=== PATIENT | female | born 1995 | race Caucasian/White ===

== ENCOUNTER → 2018-02-08 | Outpatient (CLI) | payer OTHER ==
--- NOTE | 2018-02-08 11:46 | RADIOLOGY REPORT (SQ) ---
EXAM DESCRIPTION: HYSTEROSALPINGOGRAM; HYSTERO CATH/INJECTION COMPLETED DATE/TIME: 02/08/2018 11:35 am REASON FOR STUDY: INFERTILITY COMPARISON: None. PROCEDURE: PRE-PROCEDURE: Procedure was explained to the patient. She was told to expect cramping du ring the procedure, and possible spotting post procedure. PROCEDURE: Under direct visual inspection, the cervix was cannulated with the hysterosalpingogram ca theter and contrast injected. TECHNIQUE: Temporal fluoroscopic images acquired during the procedure stored to PACS. FLUOROSCOPY TIME: Less than 5 seconds 8 digital radiographic images saved to PACS. LIMITATIONS: None. FINDINGS: UTERUS: No identified anomalies. No synechia. RIGHT ADNEXA: Normal size fallopian tube. Free spill of contrast into the peritoneal cavity. LEFT ADNEXA: Normal size fallopian tube. Free spill of contrast into the peritoneal cavity. POST PROCEDURE: The patient tolerated the procedure with no adverse effects. IMPRESSION: NORMAL HYSTEROSALPINGOGRAM. COMMENT: Quality ID 145: Final reports for procedures using fluoroscopy that document radiation exp osure indices, or exposure time and number of fluorographic images (if radiation exposure indices are not available) TECHNICAL DOCUMENTATION: JOB ID: [id number] [employer]- All Rights Reserved Reading location - IP/workstation name: [email or web address]
--- NOTE | 2018-02-08 11:47 | RADIOLOGY REPORT (SQ) ---
EXAM DESCRIPTION: HYSTEROSALPINGOGRAM; HYSTERO CATH/INJECTION COMPLETED DATE/TIME: 02/08/2018 11:35 am REASON FOR STUDY: INFERTILITY COMPARISON: None. PROCEDURE: PRE-PROCEDURE: Procedure was explained to the patient. She was told to expect cramping du ring the procedure, and possible spotting post procedure. PROCEDURE: Under direct visual inspection, the cervix was cannulated with the hysterosalpingogram ca theter and contrast injected. TECHNIQUE: Temporal fluoroscopic images acquired during the procedure stored to PACS. FLUOROSCOPY TIME: Less than 5 seconds 8 digital radiographic images saved to PACS. LIMITATIONS: None. FINDINGS: UTERUS: No identified anomalies. No synechia. RIGHT ADNEXA: Normal size fallopian tube. Free spill of contrast into the peritoneal cavity. LEFT ADNEXA: Normal size fallopian tube. Free spill of contrast into the peritoneal cavity. POST PROCEDURE: The patient tolerated the procedure with no adverse effects. IMPRESSION: NORMAL HYSTEROSALPINGOGRAM. COMMENT: Quality ID 145: Final reports for procedures using fluoroscopy that document radiation exp osure indices, or exposure time and number of fluorographic images (if radiation exposure indices are not available) TECHNICAL DOCUMENTATION: JOB ID: [id number] [email or web address]- All Rights Reserved Reading location - IP/workstation name: [email or web address]
== END ==
LOC: RAD 10:43
PROVIDERS: ATTEND Obstetrics & Gynecology
DX: E28.2 Polycystic ovarian syndrome (principal); N97.9 Female infertility, unspecified
CPT/HCPCS: 58340; 74740

== ENCOUNTER 2018-09-23 22:33 | Outpatient (CLI) | payer OTHER ==
[2018-09-23 23:07] LABS: APPEARANCE,URINE CLEAR; BILIRUBIN,URINE NEGATIVE (NEGATIVE); COLOR,URINE YELLOW; GLUCOSE, URINE NEGATIVE (NEGATIVE); KETONES,URINE TRACE mg/dL (NEGATIVE); LEUKOCYTE ESTERASE,URINE NEGATIVE (NEGATIVE); NITRITE,URINE NEGATIVE (NEGATIVE); PROTEIN,URINE NEGATIVE (NEGATIVE); URINE SPECIFIC GRAVITY 1.005; UROBILINOGEN,URINE NEGATIVE mg/dL (<2.0)
[2018-09-23 23:22] LABS: URINE AMPHETAMINES SCREEN NEGATIVE; URINE BARBITURATES SCREEN NEGATIVE; URINE BENZODIAZEPINES SCREEN NEGATIVE; URINE COCAINE SCREEN NEGATIVE; URINE MARIJUANA (THC) SCREEN NEGATIVE; URINE METHADONE SCREEN NEGATIVE; URINE PHENCYCLIDINE SCREEN NEGATIVE
--- NOTE | 2018-09-24 00:34 | Non Stress Test Report ---
Non Stress Test Datetime Report Generated by CPN: 09/24/2018 00:34 DEMOGRAPHIC EGA NST: 33.5 INDICATION Indication for Study: Ordered by Provider Indication for Study (NST) Other: LC MONITORING Monitor Explained: Monitor Explained; Test Explained; Patient Verbalized Understanding Time on Monitor: 09/23/2018 22:49 Time off Monitor: 09/24/2018 00:23 NST Duration: 94 NST INTERVENTIONS NST Interventions: PO Hydration; Reposition Patient Physician Notified NST: Dr. Jackson BABY A: [id number] BABY A Movement : Present Contraction Frequency : irregular FHR Baseline : 140 Accelerations : 15X15 Decelerations : None Variability : Moderate 6-25bpm NST Review: Meets Criteria for Reactive NST NST Review and Verified By : teri tamez RN NST Results: Reactive NST REPORT Report Trigger: Send Report
== END 2018-09-24 00:27 | disposition home or self-care (01) ==
LOC: LC 22:33
PROVIDERS: ATTEND Obstetrics & Gynecology
PROC: 4A1HXCZ Monitoring of Products of Conception, Cardiac Rate, External Approach (ICD-10-PCS; principal; 2018-09-23)
DX: O47.03 False labor before 37 completed weeks of gestation, third trimester (principal); Z3A.33 33 weeks gestation of pregnancy
CPT/HCPCS: 59025; 80307; 81001; 84112

== ENCOUNTER 2018-10-09 10:50 | Outpatient (CLI) | payer OTHER ==
--- NOTE | 2018-10-09 11:40 | Non Stress Test Report ---
Non Stress Test Datetime Report Generated by CPN: 10/09/2018 11:39 DEMOGRAPHIC EGA NST: 36.0 INDICATION Indication for Study: Ordered by Provider Indication for Study (NST) Other: sent from the offfice MONITORING Monitor Explained: Monitor Explained; Test Explained; Patient Verbalized Understanding Time on Monitor: 10/09/2018 11:07 Time off Monitor: 10/09/2018 11:33 NST Duration: 26 NST INTERVENTIONS NST Interventions: PO Hydration; Reposition Patient Physician Notified NST: N Godinez CNM BABY A: [id number] BABY A Movement : Present Contraction Frequency : OCC FHR Baseline : 140 Accelerations : 15X15 Decelerations : None Variability : Moderate 6-25bpm NST Review: Meets Criteria for Reactive NST NST Review and Verified By : JUANCHO OSBORNE RN NST Results: Reactive NST REPORT Report Trigger: Send Report
== END 2018-10-09 11:47 | disposition home or self-care (01) ==
LOC: LC 10:50
PROVIDERS: ATTEND Obstetrics & Gynecology
PROC: 4A1HXCZ Monitoring of Products of Conception, Cardiac Rate, External Approach (ICD-10-PCS; principal; 2018-10-09)
DX: Z34.93 Encounter for supervision of normal pregnancy, unspecified, third trimester (principal)
CPT/HCPCS: 59025

== ENCOUNTER 2018-10-09 11:44 | Emergency (ER) | payer OTHER ==
--- NOTE | 2018-10-09 11:52 | ER Document Report ---
ED Medical Screen (RME) - General Chief Complaint: Leg Pain Stated Complaint: RIGHT LEG PAIN Time Seen by Provider: 10/09/18 11:47 Primary Care Provider: HAWA BRYANT MD [Primary Care Provider] - Follow up as needed Mode of Arrival: Ambulatory Information source: Patient Notes: 23-year-old female presented to ED for complaint of pain to the posterior right thigh off and on for the last week she states she has it in both legs but it is worse than the right. 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 Patient is alert oriented respirations regular nonlabored speaking in full sentences walks with a even steady gait. I have greeted and performed a rapid initial assessment of this patient. A comprehensive ED assessment and evaluation of the patient, analysis of test results and completion of medical decision making process will be conducted by an additional ED providers. TRAVEL OUTSIDE OF THE [place] IN LAST 30 DAYS: No - Related Data Allergies/Adverse Reactions: Penicillins Allergy (Intermediate, Verified 10/09/18 11:45) Hives Physical Exam - Vital signs Vitals: Temp Pulse Resp BP Pulse Ox 98.0 F 76 18 125/81 99 10/09/18 11:48 10/09/18 11:48 10/09/18 11:48 10/09/18 11:48 10/09/18 11:48 Course - Vital Signs Vital signs: Temp Pulse Resp BP Pulse Ox 98.0 F 76 18 125/81 99 10/09/18 11:48 10/09/18 11:48 10/09/18 11:48 10/09/18 11:48 10/09/18 11:48 Doctor's Discharge - Discharge Referrals: HAWA BRYANT MD [Primary Care Provider] - Follow up as needed
--- NOTE | 2018-10-09 13:08 | ER Document Report ---
ED General - General Chief Complaint: Leg Pain Stated Complaint: RIGHT LEG PAIN Time Seen by Provider: 10/09/18 11:47 Primary Care Provider: HAWA BRYANT MD [ACTIVE STAFF] - Follow up in 1 week Mode of Arrival: Ambulatory Information source: Patient Notes: This 23-year-old female G1, P0 approximately 36 weeks presents today with complaints of right leg pain. Reports she has had the pain for approximately 1 week feels crampy radiates down her leg. She reports the back of her right thigh is tender to touch achy as well as her right lower leg. Denies history of DVT/PE. Family history of DVT PE. Denies recent trip denies trauma. Denies fever vomiting diarrhea. She called her stock clerk and her stock clerk told her to come here for evaluation. Patient denies abdominal pain denies pain with void denies vaginal discharge vaginal bleeding. TRAVEL OUTSIDE OF THE [place] IN LAST 30 DAYS: No - HPI Onset: Last week Onset/Duration: Sudden, Persistent Quality of pain: Achy Severity: Mild Pain Level: 1 Associated symptoms: None Exacerbated by: Denies Relieved by: Denies Similar symptoms previously: No Recently seen / treated by doctor: No - Related Data Allergies/Adverse Reactions: Penicillins Allergy (Intermediate, Verified 10/09/18 11:45) Hives Past Medical History - General Information source: Patient Last Menstrual Period: Due P0 - Social History Smoking Status: Unknown if Ever Smoked Cigarette use (# per day): No Frequency of alcohol use: None Drug Abuse: None Lives with: Family Family History: None, Reviewed & Not Pertinent Patient has suicidal ideation: No Patient has homicidal ideation: No - Medical History Medical History: Negative Renal/ Medical History: Denies: Hx Peritoneal Dialysis Surgical Hx: Negative Review of Systems - Review of Systems Notes: Review HPI for review of systems., All other systems negative Physical Exam - Vital signs Vitals: Temp Pulse Resp BP Pulse Ox 98.0 F 76 18 125/81 99 10/09/18 11:48 10/09/18 11:48 10/09/18 11:48 10/09/18 11:48 10/09/18 11:48 - General General appearance: Appears well, Alert In distress: None - HEENT Head: Normocephalic Eyes: Normal Conjunctiva: Normal Extraocular movements intact: Yes Neck: Supple - Respiratory Respiratory status: No respiratory distress Breath sounds: Normal - Cardiovascular Rhythm: Regular Heart sounds: Normal auscultation Murmur: No - Abdominal Inspection: Gravid female Tenderness: Nontender - Extremities General upper extremity: Normal color, Normal ROM General lower extremity: Normal color, Normal ROM, Normal weight bearing. No: Paty's sign Thigh: Tender - Reports right lateral posterior upper thigh tender to palpate no erythema no warmth no swelling no signs of infection Calf: Nontender - Neurological Neuro grossly intact: Yes Cognition: Normal Orientation: AAOx4 Crum Coma Scale Eye Opening: Spontaneous Crum Coma Scale Verbal: Oriented Crum Coma Scale Motor: Obeys Commands Derek Coma Scale Total: 15 Speech: Normal - Psychological Associated symptoms: Normal affect, Normal mood - Skin Skin Temperature: Warm Skin Moisture: Dry Skin Color: Normal Course - Re-evaluation Re-evalutation: 10/09/18 13:07 Patient resting quietly. She was instructed on pending Doppler. No signs of obvious thrombosis. Denies abdominal pain. 10/09/18 14:23 Venous Doppler Study 10/09/18 11:47 IMPRESSION: NO EVIDENCE DVT OR SVT IN THE RIGHT LEG. 10/09/18 15:23 Doppler negative for DVT. Patient instructed on results. Patient instructed follow-up with her primary care provider, MAINTENANCE TECHNICIAN 3RD SHIFT. She verbalized understanding to all instructions. - Vital Signs Vital signs: Temp Pulse Resp BP Pulse Ox 98.1 F 64 16 118/68 100 10/09/18 14:33 10/09/18 14:33 10/09/18 14:33 10/09/18 14:33 10/09/18 14:33 - Diagnostic Test Radiology reviewed: Image reviewed, Reports reviewed Discharge - Discharge Clinical Impression: Leg pain, right Condition: Stable Disposition: HOME, SELF-CARE Additional Instructions: *You have been evaluated for right leg pain *Your ultrasound was negative for a DVT *Follow up with your MAINTENANCE TECHNICIAN 3RD SHIFT as scheduled *Monitor your leg pain *Return to ED for worsening condition, changes, needs, increased pain, concerns Referrals: HAWA BRYANT MD [ACTIVE STAFF] - Follow up in 1 week
--- NOTE | 2018-10-09 14:14 | RADIOLOGY REPORT (SQ) ---
EXAM DESCRIPTION: VENOUS UNILATERAL LOWER COMPLETED DATE/TIME: 10/09/2018 2:05 pm REASON FOR STUDY: pain back right thigh prgnant sent by business risk analyst COMPARISON: None. TECHNIQUE: Dynamic and static bates scale and color images acquired of the right leg venous system. S elected spectral images acquired with additional compression and augmentation maneuvers. The contrala teral common femoral vein and saphenofemoral junction were also imaged. Images stored on PACS. LIMITATIONS: None. FINDINGS: COMMON FEMORAL: Normal phasicity, compression and augmentation. No visualized echogenic ma terial on bates scale. No defects on color images. FEMORAL: Normal compression and augmentation. No visualized echogenic material on bates scale. No defe cts on color images. POPLITEAL: Normal compression, augmentation. No visualized echogenic material on bates scale. No defec ts on color images. CALF VESSELS: Normal compression, augmentation. No visualized echogenic material on bates scale. No de fects on color images. GSV and SSV: Normal compression, augmentation. No visualized echogenic material on bates scale. No def ects on color images. Reflux is noted in the right greater saphenous vein. ANY DEEP VENOUS INSUFFICIENCY: Not evaluated. ANY EVIDENCE OF POPLITEAL CYST: No. OTHER: No other significant finding. CONTRALATERAL COMMON FEMORAL VEIN AND SAPHENOFEMORAL JUNCTION: Normal phasicity, compression and augmentation. No visualized echogenic material on bates scale. No de fects on color images. IMPRESSION: NO EVIDENCE DVT OR SVT IN THE RIGHT LEG. TECHNICAL DOCUMENTATION: JOB ID: [id number] [employer]- All Rights Reserved Reading location - IP/workstation name: [email or web address]
[2018-10-09 14:34] VITALS: BP 118/68
== END 2018-10-09 14:33 | disposition home or self-care (01) ==
LOC: ER 11:44
DX: O26.93 Pregnancy related conditions, unspecified, third trimester (principal); M79.604 Pain in right leg; Z3A.36 36 weeks gestation of pregnancy; Z88.0 Allergy status to penicillin
CPT/HCPCS: 93971; 99283

== ENCOUNTER 2018-10-31 00:38 | Inpatient (IN) | payer OTHER ==
[2018-10-31 00:54] LABS: APPEARANCE,URINE CLEAR; BILIRUBIN,URINE NEGATIVE (NEGATIVE); COLOR,URINE STRAW; GLUCOSE, URINE NEGATIVE (NEGATIVE); KETONES,URINE NEGATIVE (NEGATIVE); LEUKOCYTE ESTERASE,URINE NEGATIVE (NEGATIVE); NITRITE,URINE NEGATIVE (NEGATIVE); PROTEIN,URINE NEGATIVE (NEGATIVE); URINE SPECIFIC GRAVITY 1.008; UROBILINOGEN,URINE NEGATIVE mg/dL (<2.0)
[2018-10-31 01:09] LABS: URINE AMPHETAMINES SCREEN NEGATIVE; URINE BARBITURATES SCREEN NEGATIVE; URINE BENZODIAZEPINES SCREEN NEGATIVE; URINE COCAINE SCREEN NEGATIVE; URINE MARIJUANA (THC) SCREEN NEGATIVE; URINE METHADONE SCREEN NEGATIVE; URINE PHENCYCLIDINE SCREEN NEGATIVE
[2018-10-31] MEDS ORDERED: RINGERS SOLUTION,LACTATED 1,000 ML IV PRN (01:16)
[2018-10-31] MEDS ORDERED: VANCOMYCIN HCL INJ 1000 MG VIAL IV PRN (01:24)
[2018-10-31] MEDS ORDERED: VANCOMYCIN HCL 1,000 MG in DEXTROSE 5%-WATER 250 ML IV ONE (01:30)
[2018-10-31 01:51] LABS: ABSOLUTE LYMPHOCYTES (AUTO) 1.9 10^3/uL (0.5-4.7); ABSOLUTE MONOCYTES (AUTO) 0.9 10^3/uL (0.1-1.4); ABSOLUTE NEUT (AUTO) 8.1 10^3/uL (1.7-8.2); BASOPHILS % (AUTO) 0.2 % (0-2); EOSINOPHILS % (AUTO) 0.4 % (0-6); HEMATOCRIT 38.7 % (36.0-47.0); HEMOGLOBIN 13.5 g/dL (12.0-15.5); LYMPHOCYTES % (AUTO) 17.7 % (13-45); MEAN CORPUSCULAR HEMOGLOBIN 32.1 pg (27.0-33.4); MEAN CORPUSCULAR VOLUME 92 fl (80-97); PLATELET COUNT 155 10^3/uL (150-450); RED BLOOD COUNT 4.22 10^6/uL (3.72-5.28); RED CELL DISTRIBUTION WIDTH 12.5 % (11.5-14.0); SEGMENTED NEUTROPHILS % (AUTO) 73.7 % (42-78); TOTAL CELLS COUNTED % (AUTO) 100 %; WHITE BLOOD COUNT 10.9 10^3/uL (4.0-10.5)
[2018-10-31] MEDS ORDERED: VANCOMYCIN HCL INJ 1000 MG VIAL ONE (02:17)
[2018-10-31] MEDS ORDERED: FENTANYL CITRATE INJ/PF 100 MCG/2 ML AMPUL ONE (03:01)
[2018-10-31] MEDS ORDERED: OXYTOCIN/NORMAL SALINE 20 UNIT/1,000 ML RTUINJ ONE (03:11)
[2018-10-31] MEDS ORDERED: MISOPROSTOL 0.2 MG TABLET ONE (03:11)
[2018-10-31] MEDS ORDERED: OXYTOCIN 10 UNIT/ML VIAL ONE (03:11)
[2018-10-31] MEDS ORDERED: LIDOCAINE 1% INJ-PF (10 MG/ML) 30 ML SDV ONE (03:11)
--- NOTE | 2018-10-31 04:48 | Admission Physical ---
Datetime Report Generated by CPN: 10/31/2018 04:48 CURRENT ADMISSION Chief Complaint: Uterine Contractions Indication for Induction: Not Applicable Admit Impression : Term, Intrauterine ; Active Labor Admit Plan: Admit to Unit; Initiate Labor Protocol ALLERGIES Medication Allergies: No Medication Allergies: Penicillins/MO/Hives (10/31/2018) Latex: Unknown Food Allergies: None Environmental Allergies: None OBSTETRICAL HISTORY EDC: 11/06/2018 00:00 : 1 Para: 0 Term: 0 : 0 SAB: 0 IAB: 0 Ectopic: 0 Livin Cesareans: 0 VBACs: 0 Multiple Births: 0 Gestational Diabetes: No Rh Sensitization: No Incompetent Cervix: No MICKY: No Infertility: No ART Treatment: No Uterine Anomaly: No IUGR: No Hx Previous C/S: No Macrosomia: No Hx Loss/Stillborn: No PIH: No Hx : No Placenta Previa/Abruption: No Depression/PP Depression: No PTL/PROM: No Post Hemorrhage: No Obstetrical History Comments: G1- current SEE RECORDS Alcohol: No Marijuana : No Cocaine: No Other Illicit Drugs: Yes Cigarettes: Never Smoker. 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: No Heart Disease: No Hosp/Surgery: No Autoimmune Disorder: No Anesthetic Complications: No Kidney Disease: No Abnormal Pap Smear: No Neuro/Epilepsy: No Psychiatric Disorders: No Other Medical Diseases: No Hepatitis/Liver Disease: No Significant Family History: No Varicosities/Phlebitis: No Trauma/Violence : No Thyroid Dysfunction: No Medical History Comments: ovarian cyst INFECTIOUS HISTORY Gonorrhea: No Genital Herpes: No Chlamydia: No Tuberculosis: No Syphilis: No Hepatitis: No HIV/AIDS Exposure: No Rash or Viral Illness: No HPV: No PHYSICAL EXAM General: Normal HEENT: Normal Neurologic: Normal Thyroid: Normal Heart: Normal Lungs: Normal Breast: Normal Back: Normal Abdomen: Normal Genitourinary Exam: Normal Extremities: Normal DTRs: Normal Pelvic Type: Adequate Vital Signs: Reviewed; Within Normal Limits MEMBRANES Pooling: Negative Membranes: Intact FETUS A EGA: 39.1 Monitoring: External US FHR- Baseline: 130 Variability: Moderate 6-25bpm Accelerations: 15X15 Decelerations: None Estimated Weight (gm): 3400 Presentation: Vertex PLANS FOR LABOR AND DELIVERY Labor and Delivery: None Pain Management: Natural Feeding Preference: Breast Benefit of Breast Feed Discussed: Yes Circumcision: N/A INFORMED CONSENT Signature: with User ID: [email or web address]
[2018-10-31] MEDS ORDERED: IBUPROFEN 800 MG TABLET ONE ×2 (04:49→07:26)
[2018-10-31] MEDS ORDERED: DIPH/PERTUSS(ACELL)/TETANUS VAC/PF 0.5 ML SYR (>=10YO) IM PRN (04:52)
[2018-10-31] MEDS ORDERED: PSEUDOEPHEDRINE HCL 30 MG TABLET PO PRN (04:52)
[2018-10-31] MEDS ORDERED: ACETAMINOPHEN WITH CODEINE #3 TABLET PO PRN ×2 (04:52)
[2018-10-31] MEDS ORDERED: DIBUCAINE 1% OINTMENT 56 GM TP PRN (04:52)
[2018-10-31] MEDS ORDERED: DIPHENHYDRAMINE HCL 25 MG CAPSULE PO PRN (04:52)
[2018-10-31] MEDS ORDERED: PROMETHAZINE HCL 25 MG TABLET PO PRN (04:52)
[2018-10-31] MEDS ORDERED: ZOLPIDEM TARTRATE 5 MG TABLET PO PRN (04:52)
[2018-10-31] MEDS ORDERED: ACETAMINOPHEN 325 MG TABLET PO PRN (04:52)
[2018-10-31] MEDS ORDERED: MEASLES,MUMPS&RUBELLA VACC/PF 0.5 ML VIAL SUBCUT PRN (04:52)
[2018-10-31] MEDS ORDERED: NA PHOS,M-B/NA PHOS,DI-BA (ADULT) 133 ML ENEMA PR PRN (04:52)
[2018-10-31] MEDS ORDERED: OXYTOCIN/NORMAL SALINE 20 UNIT/1,000 ML RTUINJ IV PRN (04:52)
[2018-10-31] MEDS ORDERED: PROMETHAZINE HCL INJ 25 MG/1 ML VIAL IV PRN (04:52)
[2018-10-31] MEDS ORDERED: GLYCERIN/WITCH HAZEL LEAF 1 EACH MED..WIPE TP PRN (04:52)
[2018-10-31] MEDS ORDERED: MAGNESIUM HYDROXIDE SUSP 30 ML UDCUP PO PRN (04:52)
[2018-10-31] MEDS ORDERED: ACETAMINOPHEN 650 MG SUPP.RECT PR PRN (04:52)
[2018-10-31] MEDS ORDERED: BENZOCAINE/MENTHOL AEROSOL SPRAY 56 ML TOP PRN (04:52)
[2018-10-31] MEDS ORDERED: PROMETHAZINE HCL 25 MG SUPP.RECT PR PRN (04:52)
--- NOTE | 2018-10-31 07:18 | Warning Signs in Babies ---
VOD Warning Signs Datetime Report Generated by N: 10/31/2018 07:17 VOD#608 -Warning Signs in Babies: Viewed with Parent(s)/Family (10/31/2018 07:17:Lorrie Ross RN)
[2018-10-31] MEDS: IBUPROFEN 800 MG TABLET PO SCH ×3 (08:53→21:42)
[2018-10-31] MEDS: FAMOTIDINE 20 MG TABLET PO SCH ×2 (09:50→21:42)
[2018-10-31] MEDS: PRENATAL VITAMIN W DHA CAPSULE PO SCH (09:50)
[2018-10-31] MEDS: SENNOSIDES/DOCUSATE 8.6-50 MG 1 EACH TABLET PO SCH (09:50)
[2018-10-31] MEDS: FERROUS SULFATE 325 MG TABLET PO SCH ×2 (09:50→17:24)
[2018-10-31] MEDS: DOCUSATE SODIUM 100 MG CAPSULE PO SCH ×2 (09:50→17:24)
[2018-10-31] MEDS ORDERED: VANCOMYCIN HCL 1,000 MG in DEXTROSE 5%-WATER 250 ML IV SCH (10:00)
[2018-11-01] MEDS: IBUPROFEN 800 MG TABLET PO SCH ×3 (05:50→21:55)
[2018-11-01 07:03] LABS: HEMATOCRIT 34.2 % (36.0-47.0); MEAN CORPUSCULAR HEMOGLOBIN 32.7 pg (27.0-33.4); MEAN CORPUSCULAR HGB CONC 35.2 g/dL (32.0-36.0); MEAN CORPUSCULAR VOLUME 93 fl (80-97); PLATELET COUNT 129 10^3/uL (150-450); RED BLOOD COUNT 3.68 10^6/uL (3.72-5.28); RED CELL DISTRIBUTION WIDTH 12.6 % (11.5-14.0); WHITE BLOOD COUNT 10.8 10^3/uL (4.0-10.5)
[2018-11-01] MEDS: PRENATAL VITAMIN W DHA CAPSULE PO SCH (09:40)
[2018-11-01] MEDS: FAMOTIDINE 20 MG TABLET PO SCH ×2 (09:40→21:54)
[2018-11-01] MEDS: SENNOSIDES/DOCUSATE 8.6-50 MG 1 EACH TABLET PO SCH (09:40)
[2018-11-01] MEDS: DOCUSATE SODIUM 100 MG CAPSULE PO SCH ×2 (09:40→17:36)
[2018-11-01] MEDS: FERROUS SULFATE 325 MG TABLET PO SCH ×2 (09:40→17:36)
--- NOTE | 2018-11-01 10:47 | PDOC PROGRESS REPORT ---
Subjective-OB Progress Note for:: 11/01/18 Physical Exam (OB) Vital Signs: Temp Pulse Resp BP Pulse Ox 98.4 F 71 18 124/71 100 11/01/18 07:28 11/01/18 07:28 11/01/18 07:28 11/01/18 07:28 11/01/18 07:28 Intake & Output 10/31/18 11/01/18 11/02/18 06:59 06:59 06:59 Weight 75.6 kg - PIH/Pre-Eclampsia DTR's: 2 + Clonus: Negative Headache: Absent Epigastric Pain: No Visual Changes: No - Lochia Lochia Amount: Small 10-25 ml Lochia Color: Rubra/Red - Abdomen Description: Soft Hernia Present: No Bowel Sounds: Normoactive Flatus Presence: Present Stool: No Fundal Description: Firm, Midline Fundal Height: u/u - u/2 Objective-Diagnostic Laboratory: 11/01/18 06:41 11/01/18 11/01/18 06:41 06:41 WBC 10.8 H RBC 3.68 L Hgb 12.0 Hct 34.2 L MCV 93 MCH 32.7 MCHC 35.2 RDW 12.6 Plt Count 129 L Blood Type A NEGATIVE
[2018-11-02] MEDS: IBUPROFEN 800 MG TABLET PO SCH (05:18)
[2018-11-02] MEDS: PRENATAL VITAMIN W DHA CAPSULE PO SCH (09:44)
[2018-11-02] MEDS: FAMOTIDINE 20 MG TABLET PO SCH (09:44)
[2018-11-02] MEDS: DOCUSATE SODIUM 100 MG CAPSULE PO SCH (09:44)
[2018-11-02] MEDS: SENNOSIDES/DOCUSATE 8.6-50 MG 1 EACH TABLET PO SCH (09:44)
[2018-11-02] MEDS: FERROUS SULFATE 325 MG TABLET PO SCH (09:44)
--- NOTE | 2018-11-02 10:46 | PDOC PROGRESS REPORT ---
Subjective-OB Progress Note for:: 11/02/18 Subjective: Doing well, no c/o, ready to go home Physical Exam (OB) Vital Signs: Temp Pulse Resp BP Pulse Ox 97.8 F 75 14 129/81 H 98 11/02/18 07:37 11/02/18 07:37 11/02/18 07:37 11/02/18 07:37 11/02/18 07:37 Intake & Output 11/01/18 11/02/18 11/03/18 06:59 06:59 06:59 Intake Total 600 Balance 600 - PIH/Pre-Eclampsia DTR's: 2 + Clonus: Negative Headache: Absent Epigastric Pain: No Visual Changes: No - Lochia Lochia Amount: Small 10-25 ml Lochia Color: Serosa/Brown - Abdomen Description: Soft Hernia Present: No Fundal Description: Firm, Midline Fundal Height: u/u - u/2 Objective-Diagnostic Laboratory: 11/01/18 06:41 Assessment and Plan(PN) - Assessment and Plan (1) Positive GBS test Is this a current diagnosis for this admission?: Yes (2) Delivery normal Is this a current diagnosis for this admission?: Yes - Time Spent with Patient Time with patient: Less than 15 minutes Medications reviewed and adjusted accordingly: Yes - Disposition Anticipated Discharge: Home Within: within 24 hours
--- NOTE | 2018-11-02 10:51 | PDOC DISCHARGE SUMMARY ---
Impression - Admit/DC Date/PCP Admission Date/Primary Care Provider: 10/31/18 02:46 ALTAF PHAN PA-C Discharge Date: 11/02/18 - Discharge Diagnosis (1) Positive GBS test Is this a current diagnosis for this admission?: Yes (2) Delivery normal Is this a current diagnosis for this admission?: Yes - Additional Information Resuscitation Status: Full Code Discharge Diet: As Tolerated, Regular Discharge Activity: Activity As Tolerated, No Lifting Over 10 Pounds, No Lifting/Push/Pulling, Pelvic Rest Referrals: ALTAF PHAN PA-C [Primary Care Provider] - Home Medications: Prenat 115/Iron Fum/Folic/Dss [ 19 Tablet] 1 tab PO DAILY 09/23/18 HPI Gestational Age: 39.1 Reason(s) for Admission: Onset of Labor, Group B Strep Positive Procedures: NST, Ultrasound Intrapartum Procedure(s): Spontaneous Vaginal Delivery Complication(s): Laceration-Sulcus Laceration-Degree: 1st Hospital Course Hospital Course: , female, A neg Results Laboratory Results: WBC 10.8 10^3/uL (4.0-10.5) H 11/01/18 06:41 RBC 3.68 10^6/uL (3.72-5.28) L 11/01/18 06:41 Hgb 12.0 g/dL (12.0-15.5) 11/01/18 06:41 Hct 34.2 % (36.0-47.0) L 11/01/18 06:41 MCV 93 fl (80-97) 11/01/18 06:41 MCH 32.7 pg (27.0-33.4) 11/01/18 06:41 MCHC 35.2 g/dL (32.0-36.0) 11/01/18 06:41 RDW 12.6 % (11.5-14.0) 11/01/18 06:41 Plt Count 129 10^3/uL (150-450) L 11/01/18 06:41 Lymph % (Auto) 17.7 % (13-45) 10/31/18 01:32 [place] % (Auto) 8.0 % (3-13) 10/31/18 01:32 Eos % (Auto) 0.4 % (0-6) 10/31/18 01:32 Baso % (Auto) 0.2 % (0-2) 10/31/18 01:32 Absolute Neuts (auto) 8.1 10^3/uL (1.7-8.2) 10/31/18 01:32 Absolute Lymphs (auto) 1.9 10^3/uL (0.5-4.7) 10/31/18 01:32 Absolute Monos (auto) 0.9 10^3/uL (0.1-1.4) 10/31/18 01:32 Absolute Eos (auto) 0.0 10^3/uL (0.0-0.6) 10/31/18 01:32 Absolute Basos (auto) 0.0 10^3/uL (0.0-0.2) 10/31/18 01:32 Seg Neutrophils % 73.7 % (42-78) 10/31/18 01:32 Urine Color STRAW 10/31/18 00:43 Urine Appearance CLEAR 10/31/18 00:43 Urine pH 7.0 (5.0-9.0) 10/31/18 00:43 Ur Specific [place] 1.008 10/31/18 00:43 Urine Protein NEGATIVE mg/dL (NEGATIVE) 10/31/18 00:43 Urine Glucose (UA) NEGATIVE mg/dL (NEGATIVE) 10/31/18 00:43 Urine Ketones NEGATIVE mg/dL (NEGATIVE) 10/31/18 00:43 Urine Blood NEGATIVE (NEGATIVE) 10/31/18 00:43 Urine Nitrite NEGATIVE (NEGATIVE) 10/31/18 00:43 Urine Bilirubin NEGATIVE (NEGATIVE) 10/31/18 00:43 Urine Urobilinogen NEGATIVE mg/dL (<2.0) 10/31/18 00:43 Ur Leukocyte Esterase NEGATIVE (NEGATIVE) 10/31/18 00:43 Urine Ascorbic Acid NEGATIVE (NEGATIVE) 10/31/18 00:43 Urine Opiates Screen NEGATIVE 10/31/18 00:43 Urine Methadone Screen NEGATIVE 10/31/18 00:43 Ur Barbiturates Screen NEGATIVE 10/31/18 00:43 Ur Phencyclidine Scrn NEGATIVE 10/31/18 00:43 Ur Amphetamines Screen NEGATIVE 10/31/18 00:43 U Benzodiazepines Scrn NEGATIVE 10/31/18 00:43 Urine Cocaine Screen NEGATIVE 10/31/18 00:43 U Marijuana (THC) Screen NEGATIVE 10/31/18 00:43 RPR NONREACTIVE (NONREACTIVE) 10/31/18 01:32 Blood Type A NEGATIVE 11/01/18 06:41 Antibody Screen NEGATIVE 10/31/18 01:32 Screen NEGATIVE 11/01/18 06:41 Impressions: normal Plan Plan of Treatment: pelvic rest, baby home with patient Goals: RTC 4 weeks Time Spent: Less than 30 Minutes
[2018-11-02 11:02] VITALS: BP 138/89
--- NOTE | 2018-11-06 08:15 | Delivery Summary ---
Del Sum A-C Datetime Report Generated by CPN: 11/06/2018 08:15 DELIVERY PERSONNEL DELIVERY PERSONNEL: [id number] Delivery Doctor:: Rocio Betancourt MD Labor and Delivery Nurse:: Lorrie Ross, cloth packer Nurse:: Lydia Pedersenyle, RN Line Assembly Utility Worker/ELECTRONIC COMMERCE SPECIALIST: Britany Rc, ST MATERNAL INFORMATION Delivery Anesthesia: None Medications After Delivery: Pitocin Drip 20 Units/1000ml NSS Delivery QBL: 135 Maternal Complications: None LABOR SUMMARY EDC: 11/06/2018 00:00 No. Babies in Womb: 1 Attempted: No Labor Anesthesia: None LABOR INFORMATION Reason for Induction: Not Applicable Onset of Labor: 10/30/2018 02:00 Complete Dilatation: 10/31/2018 03:31 Oxytocin: N/A Group B Beta Strep: positive Antibiotics # of Doses: 1 Antibiotics Time of Last Dose: 0238 Name of Antibiotic Given: Vancomycin Steroids Given: None Reason Steroids Not Administered: Not Applicable MEMBRANES Membranes Rupture Method: Spontaneous Rupture of Membranes: 10/31/2018 03:01 Length of Rupture (hr): 1.53 Amniotic Fluid Color: Clear Amniotic Fluid Amount: Moderate Amniotic Fluid Odor: Normal STAGES OF LABOR Stage 1 hr: 25 Stage 1 min: 31 Stage 2 hr: 1 Stage 2 min: 2 Stage 3 hr: 0 Stage 3 min: 4 Total Time in Labor hr: 26 Total Time in Labor min: 37 VAGINAL DELIVERY Episiotomy: None Laceration #1: Sulcus Laceration Extension #1: First Degree Laceration Repair: Not Applicable BABY A INFORMATION Delivery Date/Time: 10/31/2018 04:33 Method of Delivery: Vaginal Born in Route : No : N/A Forceps: N/A Vacuum Extraction: N/A Shoulder Dystocia : No PRESENTATION/POSITION BABY A Presentation: Cephalic Cephalic Presentation: Vertex Vertex Position: Left Occipital Anterior Breech Presentation: N/A PLACENTA INFORMATION BABY A Placenta Delivery Time : 10/31/2018 04:37 Placenta Method of Delivery: Spontaneous Placenta Method of Delivery: Spontaneous Placenta Status: Delivered SCORES BABY A Heart Rate 1 min: >100 bpm Resp Effort 1 min: Good Cry Reflex Irritability 1 min: Cough or Sneeze or Pulls Away Muscle Tone 1 min: Active Motion Color 1 min: Body [place], Extremities Blue Resuscitation Effort 1 min: Tactile Stimulation SCORE 1 MIN: 9 Heart Rate 5 min: >100 bpm Resp Effort 5 min: Good Cry Reflex Irritability 5 min: Cough or Sneeze or Pulls Away Muscle Tone 5 min: Active Motion Color 5 min: Body [place], Extremities Blue Resuscitation Effort 5 min: Tactile Stimulation SCORE 5 MIN: 9 INFORMATION BABY A Gestational Age at Delivery: 39.1 Gestational Status: Full Term- 39- 40.6 Weeks Outcome : Liveborn Infant Condition : Stable Sex: Female IDENTIFICATION BABY A Verification Date/Time: 10/31/2018 05:15 ID Band Number: [id number] Mother's Name Verified: Yes RN Verifying : Santana Ross RN Additional Verifying Personnel: Viri Barajas RN WEIGHT/LENGTH BABY A Birthweight (gm): 3388 Infant Weight (lb): 7 Infant Weight (oz): 8 Infant Length (in): 21.00 Infant Length (cm): 53.34 CORD INFORMATION BABY A No. Cord Vessels: 3 Nuchal Cord : N/A Cord Blood Taken: Yes-For Eval (Mom's Blood Type - or O+) Infant Suction: None ASSESSMENT BABY A Infant Complications: None Physical Findings at Delivery: Within Normal Limits Respirations: Appears Normal Skin to Skin: Yes Skin to Skin Time (min): 120 Final Inspector Paper/ALS Called : No Transferred To: Remains with Mother BABY B INFORMATION : N/A SIGNATURES Signature: with User ID: [email or web address]
== END 2018-11-02 12:31 | disposition home or self-care (01) | DRG 807 ==
LOC: LC 00:38 → LR 02:46 → 2N 07:40
PROVIDERS: ADMIT Obstetrics & Gynecology; ATTEND Obstetrics & Gynecology
PROC: 10E0XZZ Delivery of Products of Conception, External Approach (ICD-10-PCS; principal; 2018-10-31)
DX: O99.824 Streptococcus B carrier state complicating childbirth (principal); Z37.0 Single live birth; O70.0 First degree perineal laceration during delivery; O99.323 Drug use complicating pregnancy, third trimester; Z3A.39 39 weeks gestation of pregnancy; Z88.0 Allergy status to penicillin
CPT/HCPCS: 36415; 59025; 80307; 81005; 85025; 85027; 85461; 86592; 86850; 86900; 86901; J2590; J2790; J3010; J3370; J3490; J7060